=== PATIENT | male | born 1955 | race Caucasian/White ===

== ENCOUNTER 2022-01-24 09:05 | Day surgery (SDC) | payer OTHER ==
[2022-01-18 15:34] LABS: BASOPHILS % (AUTO) 0.6 % (0-1); EOSINOPHILS # (AUTO) 0.3 X10'3 (0-0.9); EOSINOPHILS % (AUTO) 5.5 % (0-6); LYMPHOCYTES # (AUTO) 1.1 X10'3 (1.1-4.8); LYMPHOCYTES % (AUTO) 18.8 % (21-51); MEAN CORPUSCULAR VOLUME 97.1 FL (78-98); MEAN PLATELET VOLUME 8.1 FL (7.4-10.4); MONOCYTES # (AUTO) 0.6 X10'3 (0-0.9); MONOCYTES % (AUTO) 10.5 % (2-12); NEUTROPHILS # (AUTO) 3.7 X10'3 (1.8-7.7); NEUTROPHILS % (AUTO) 64.6 % (42-75); PRE OP HEMATOCRIT 39.9 % (42.0-52.0); PRE OP HEMOGLOBIN 13.5 g/dL (14.0-17.9); PRE OP PLATELET COUNT 224 X10'3 (140-440); RED BLOOD COUNT 4.11 X10'6 (4.70-6.10); RED CELL DISTRIBUTION WIDTH 13.9 % (11.5-14.5)
[2022-01-18 15:47] LABS: ALBUMIN 3.8 G/DL (3.4-5.0); ALBUMIN/GLOBULIN RATIO 1.1 (1.1-1.5); ALKALINE PHOSPHATASE 82 IU/L (46-116); BLOOD UREA NITROGEN 54 MG/DL (7-18); BUN/CREATININE RATIO 27.3 (5.4-32.0); CALCIUM 8.8 MG/DL (8.5-10.1); CHLORIDE 109 MMOL/L (99-107); CREATININE 1.98 MG/DL (0.60-1.10); PRE OP ALT 35 U/L (30-65); PRE OP ANION GAP 12 (8-16); PRE OP AST 26 U/L (10-37); PRE OP BILIRUB, TOTAL 0.3 MG/DL (0.0-1.0); PRE OP GLUCOSE 102 MG/DL (70-104); PRE OP POTASSIUM 4.3 MMOL/L (3.4-5.1); PRE OP SODIUM 143 MMOL/L (135-145); TOTAL CARBON DIOXIDE 22.5 MMOL/L (24-32); TOTAL PROTEIN 7.3 G/DL (6.4-8.2); eGFR 34 ML/MIN
[2022-01-24] VITALS (11 sets, daily range): BP systolic 94–138; BP diastolic 51–97
[~2022-01-24] VITALS: Ht 182.9 cm; Wt 106.0 kg
[~2022-01-24 09:05] MED LIST: ADV50500 INH; ALBU8HFA PO; LISI1TAB53 PO; PANT-47 PO; albuterol 2.5 MG/3 ML nebule NEB ONE; cefazolin/dext.iso 2gm/50ml IV ONE; famotidine 20mg tablet PO ONE; ringers solution, lacted 1,000 ML IV SCH
--- NOTE | 2022-01-24 10:33 | NUR ---
PT PREPPED FOR SURGERY IV STARTED WITHOUT DIFFICULTY. RESPIRATORY THERAPY AT BEDSIDE, BREATHING TREATMENT GIVEN. BILATERAL CALFS WITH CIRCULAR WOUNDS FROM CART RUNNING INTO HIS LEGS, QUARTER SIZE BRUISE ALSO NOTED ON RIGHT SIDE OF ABDOMEN.
[2022-01-24] MEDS ORDERED: LIDOcaine 1% 30ml preserv. free vial ONE (12:12)
[2022-01-24] MEDS ORDERED: BUPIVAcaine 0.5% inj/PF 30 ML ONE ×2 (12:12→12:16)
[2022-01-24] MEDS ORDERED: BUPIVACAINE liposomal/PF 13.3 MG/ML vial IM ONE (12:16)
[2022-01-24] MEDS ORDERED: sevoflurane 250ml liquid IH ONE (12:24)
[2022-01-24] MEDS ORDERED: FENTANYL CITRATE/PF 50 MCG/1 ML VIAL ONE (12:41)
[2022-01-24] MEDS ORDERED: glycopyrrolate 0.2mg/ml inj ONE (12:41)
[2022-01-24] MEDS ORDERED: neostigmine methylsulfate 1 MG/ML 10ml vial ONE (12:41)
[2022-01-24] MEDS ORDERED: propofol inj 20 ML IV ONE (12:41)
[2022-01-24] MEDS ORDERED: rocuronium 10mg/ml inj IV ONE (12:41)
[2022-01-24] MEDS ORDERED: ondansetron/PF 4mg/2ml inj ONE (12:41)
[2022-01-24] MEDS ORDERED: LIDOcaine 2% (20mg/ml) 5ml vial ONE (12:41)
[2022-01-24] MEDS ORDERED: dexamethasone sod phosphate 4mg/ml inj. ONE (12:44)
[2022-01-24] MEDS ORDERED: BUPIVAcaine 0.5% inj/PF 30 ml vial IJ ONE (12:58)
[2022-01-24] MEDS ORDERED: labetalol 20mg/4ml (5mg/ml) syringe IV ONE (13:04)
[2022-01-24] MEDS ORDERED: ondansetron/PF 4mg/2ml inj IV PRN (13:05)
[2022-01-24] MEDS ORDERED: labetalol 20mg/4ml (5mg/ml) syringe IV PRN (13:05)
[2022-01-24] MEDS ORDERED: hydrALAZINE 20mg/ml inj. IV PRN (13:05)
[2022-01-24] MEDS ORDERED: morphine 2 MG/ML inj. syringe IV PRN (13:05)
[2022-01-24] MEDS ORDERED: fentaNYL/PF 50MCG/1 ML 2ML syringe IV PRN ×2 (13:05)
[2022-01-24] MEDS ORDERED: morphine 4 MG/ML inj SYRINge IV PRN (13:05)
[2022-01-24] MEDS ORDERED: ringers solution, lacted 1,000 ML IV SCH (13:05)
--- NOTE | 2022-01-24 13:43 | NUR ---
Received from OR via , accompanied by Anesthesiologist DR HUIZAR and report given by Anesthesiolgist. AWAKENS TO VOICE. VITALS STABLE. DRESSINGS DI. CAREN PAIN. ABD SOFT.
[2022-01-24] MEDS ORDERED: oxyCODONE/APAP 5-325mg tablet PO PRN ×2 (14:10)
[2022-01-24] MEDS ORDERED: acetaminophen 1,000mg/100ml IV 100 ML IV ONE (14:30)
--- NOTE | 2022-01-24 15:33 | NUR ---
AWAKE AND ORIENTED. VITALS STABLE. DRESSINGS DI. STATES PAIN IMPROVING. HOME WITH HIS AT THIS TIME.
== END 2022-01-24 15:33 | disposition home or self-care (01) ==
LOC: PAS 09:05
PROVIDERS: ATTEND Surgery
DX: K42.0 Umbilical hernia with obstruction, without gangrene (principal); J44.9 Chronic obstructive pulmonary disease, unspecified; E66.9 Obesity, unspecified; Z68.31 Body mass index [BMI] 31.0-31.9, adult; I10 Essential (primary) hypertension; K21.9 Gastro-esophageal reflux disease without esophagitis; Z72.89 Other problems related to lifestyle; M19.90 Unspecified osteoarthritis, unspecified site; Z20.822 Contact with and (suspected) exposure to COVID-19; Z79.899 Other long term (current) drug therapy; Z98.890 Other specified postprocedural states
CPT/HCPCS: 36415; 49653; 64488; 71046; 80053; 82948; 85025; 93005; 94640; C1781; C9290; J0131; J1100; J2405; J2704; J2710; J3010; J3490; J7030; J7120; S0020; U0003; U0005; Z7506; Z7508; Z7512; A4215; A4618; J0690

== ENCOUNTER 2025-08-07 16:38 | Emergency (ER) | payer OTHER, MEDICARE ==
[~2025-08-07] VITALS: Ht 182.9 cm; Wt 109.4 kg
[~2025-08-07 16:38] MED LIST changes: -ADV50500 INH; +FLUT1BLS8 INH; -albuterol 2.5 MG/3 ML nebule NEB ONE; -cefazolin/dext.iso 2gm/50ml IV ONE; -famotidine 20mg tablet PO ONE; -ringers solution, lacted 1,000 ML IV SCH
[2025-08-07 16:46] VITALS: TEMP 97.4
--- NOTE | 2025-08-07 17:07 | Physician Documentation ---
History of Present Illness ~ Chief Complaint: Wound Stated Complaint: POSS BLOOD CLOT IN LEG Time Seen by MD: 16:56 Primary Medical Doctor: [place] HPI 69 -year-old male [facility]. Referred to the emergency department for ultrasound imaging to evaluate for vascular occlusion. Patient recently on Keflex yet the wound continues to heal. He is set up with wound care. Reported shortness of breath or dyspnea on exertion. No reported palpitations. Only mild swelling to the lower extremity without erythema. Tetanus within 5 years?: No Medication Reconciliation Allergies: Coded Allergies: No Known Allergies (Unverified , 08/07/25) Scheduled Fluticasone/Salmeterol* (Advair 500-50 Diskus*), 1 PUFF INH Q12H, (Reported) Lisinopril/Hydrochlorothiazide (Lisinopril-Hctz 20-25 mg Tab), 2 TAB PO DAILY, (Reported) Pantoprazole Sodium (PROTONIX tablet), 1 TAB PO DAILY, (Reported) Scheduled PRN albuterol inhaler (Pro-Air Inhaler), 1-2 PUFFS PO Q4H PRN for shortness of breath, (Reported) Past Medical History Past Medical History: Hypertension, Asthma, COPD Past Surgical History: abdominal surgery, orthopedic surgeries Drug Use: none Lives In: Home Review of Systems All Other Systems at this time: Reviewed and Negative Integumentary: Reports: wound(s) (Right lower leg) Physical Exam Vital Signs: RN Vital Signs have been reviewed: Yes, Temperature: 97.4, Source: Temporal, Heart Rate: 56, Respiratory Rate: 16, BP: 156/110, Pulse Oximetry: 98, Weight: 109.400 Oxygen Flow Rate: 0 General Appearance: alert, WD/WN EENT: normal ENT inspection Neck: non-tender Respiratory: no respiratory distress Chest: no accessory muscle use Gastrointestinal: non-tender Back: normal inspection Extremities: other (HPI) Skin Right lower lateral proximal to be a wound Neurologic: oriented x4 Psychiatric: normal mood/affect Progress Results/Orders Results/Orders Orders - ROJELIO DIAZ PAC Vl Venous (08/07/25 17:04) Vital Signs 08/07/25 16:46 Temp 97.4 Pulse 56 Resp 16 B/P (MAP) 156/110 Pulse Ox 98 O2 Flow Rate 0 Medical Decision Making Additional information obtaine: old records Findings Records reviewed from the [place]. Ultrasound imaging of the lower extremity pending. No indication for labs. The plan is to add doxycycline of ultrasound imaging is negative. If positive for DVT we will begin anticoagulation studies and [facility]. Patient is to continue with his wound care. Ultrasound imaging reassuring for no DVT. We will begin doxycycline. Patient to follow up with [place] wound care. Differential Dx:Considerations: Include: Abscess, Cellulitis, Healing wound, Other (CT) Departure Disposition: HOME / SELF CARE / HOMELESS Impression: Primary Impression: Open wound, lower leg Qualified Codes: S81.801A - Unspecified open wound, right lower leg, initial encounter Condition: Improved Discharge Instructions: How to Change Your Wound Dressing Additional Instructions: Today in the emergency department you had ultrasound imaging obtained which is negative for DVT. Please continue your follow up with the [place] wound clinic. I have prescribed you doxycycline to begin. Thank you for visiting emergency department [facility]. Referrals: NO PRIMARY CARE PROVIDER (PCP) Prescriptions Doxycycline Monohydrate (Doxycycline Monohydrate) 100 Mg Capsule 100 MG PO BID, #20 CAP may sub doxycycline hyclate or azithromycin z-pack as prescribed Prov: ROJELIO DIAZ 08/07/25 Education Educated: Patient Educated regarding: diagnosis, treatment, prognosis, need for follow up Signature Scribe Signature: . Attestation: . ROJELIO DIAZ Aug 07, 2025 17:07
[2025-08-07] MEDS ORDERED: DOXY100C43 PO (17:40)
--- NOTE | 2025-08-07 18:05 | VASCULAR REPORT ---
Right lower extremity venous duplex Clinical History: Right lower extremity wound Comparison: None Technique: Duplex Doppler evaluation of the deep venous system of the right lower extremity from the common femoral vein to the popliteal vein including color Doppler and spectral/pulsed waveform analysis was performed. Findings: The common femoral vein demonstrates appropriate compressibility and waveform variability. There is compressibility/patency of the great saphenous vein at the proximal thigh. The femoral vein demonstrates appropriate compressibility and waveform variability. The deep femoral vein demonstrates appropriate compressibility and waveform variability. The popliteal vein demonstrates appropriate compressibility and waveform variability. There is normal compressibility at the tibioperoneal trunk. Prominent right inguinal lymph node measures 2.0 x 0.6 cm. Impression: 1. No right femoropopliteal venous thrombosis. 2. Prominent right inguinal lymph node.
[2025-08-07 18:10] VITALS: BP 154/98; PULSE 68; RESP 18; O2SAT 97
== END 2025-08-07 18:12 | disposition home or self-care (01) ==
LOC: ER 16:39
DX: S81.801A Unspecified open wound, right lower leg, initial encounter (principal); I10 Essential (primary) hypertension; J44.9 Chronic obstructive pulmonary disease, unspecified; Z79.899 Other long term (current) drug therapy; Z98.890 Other specified postprocedural states; X58.XXXA Exposure to other specified factors, initial encounter; Y93.89 Activity, other specified; Y92.89 Other specified places as the place of occurrence of the external cause; Y99.8 Other external cause status
CPT/HCPCS: 99284